=== PATIENT | male | born 1960 | race Caucasian/White ===

== ENCOUNTER → 2017-02-17 | Outpatient (REF) | payer OTHER ==
[2017-02-17 11:59] LABS: ALBUMIN/GLOBULIN RATIO 1.14 (1.00-1.93); ALKALINE PHOSPHATASE 59 U/L (45-117); ALT/SGPT 39 U/L (12-78); ANION GAP 9 MEQ/L (8-16); AST/SGOT 30 U/L (15-37); BILIRUBIN,TOTAL 0.6 MG/DL (0.2-1.0); BLOOD UREA NITROGEN 24 MG/DL (7-18); CALCIUM LEVEL 9.2 MG/DL (8.5-10.1); CARBON DIOXIDE LEVEL 30 MEQ/L (21-32); CHLORIDE LEVEL 101 MEQ/L (98-107); CHOLESTEROL LEVEL 201 MG/DL (<200); CREATININE FOR GFR 1.14 MG/DL (0.70-1.30); GLOMERULAR FILTRATION RATE > 60.0 (>56); GLUCOSE, FASTING 105 MG/DL (70-105); SODIUM LEVEL 140 MEQ/L (136-145); TOTAL PROTEIN 7.5 GM/DL (6.4-8.2); TRIGLYCERIDES LEVEL 157 MG/DL (<150); URIC ACID 7.6 MG/DL (3.5-7.2)
== END ==
LOC: M SFHCCLAY 07:18
PROVIDERS: ATTEND Nurse Practitioner
DX: I10 Essential (primary) hypertension (principal); E78.2 Mixed hyperlipidemia; Z12.5 Encounter for screening for malignant neoplasm of prostate; Z87.39 Personal history of other diseases of the musculoskeletal system and connective tissue

== ENCOUNTER → 2017-08-16 | Outpatient (CLI) | payer OTHER ==
--- NOTE | 2017-08-16 09:13 | REP ---
LEFT KNEE SERIES: Five views of the left knee performed. T here is no acute fracture or dislocation. There is slight medial joint space narrowing and lateral patellofemoral compartment narrowing. There is no joint effusion. IMPRESSION: Minimal degenerative changes.
== END ==
LOC: M CLY 08:00
PROVIDERS: ATTEND Nurse Practitioner
DX: M25.562 Pain in left knee (principal)

== ENCOUNTER → 2018-05-15 | Outpatient (REF) | payer OTHER ==
[2018-05-15 12:56] LABS: CHOLESTEROL LEVEL 165 MG/DL (<200); HDL CHOLESTEROL 50 MG/DL (>40); NON-HDL-C 115 MG/DL; TRIGLYCERIDES LEVEL 140 MG/DL (<150)
== END ==
LOC: M SFHCCLAY 06:57
DX: E78.2 Mixed hyperlipidemia (principal)

== ENCOUNTER → 2019-03-26 | Outpatient (REF) | payer OTHER ==
[2019-03-26 11:39] LABS: BASO % 0.2 % (0.0-1.0); EOS # 0.2 10^3/uL (0.0-0.50); EOS % 2.2 % (0.0-3.0); HEMATOCRIT 41.4 % (42.0-52.0); HEMOGLOBIN 14.2 g/dl (13.5-17.5); LYMPH # 0.7 10^3/uL (1.5-4.5); MEAN CORPUSCULAR HEMOGLOBIN 31.6 pg (27.0-33.0); MEAN CORPUSCULAR HGB CONC 34.3 g/dl (32.0-36.5); NEUTROPHILS # 7.6 10^3/uL (1.8-7.7); NEUTROPHILS % 80.4 % (36.0-66.0); PLATELET COUNT, AUTOMATED 196 10^3/uL (150-450); WHITE BLOOD COUNT 9.5 10^3/uL (4.0-10.0)
[2019-03-26 11:52] LABS: ALBUMIN 3.7 GM/DL (3.2-5.2); ALT/SGPT 38 U/L (12-78); BILIRUBIN,TOTAL 0.5 MG/DL (0.2-1.0); BLOOD UREA NITROGEN 25 MG/DL (7-18); CALCIUM LEVEL 8.8 MG/DL (8.8-10.2); CARBON DIOXIDE LEVEL 32 MEQ/L (21-32); CHLORIDE LEVEL 102 MEQ/L (98-107); CHOLESTEROL LEVEL 160 MG/DL (<200); CHOLESTEROL RISK RATIO 3.404 (<5); FREE T4 0.99 NG/DL (0.76-1.46); GLOMERULAR FILTRATION RATE > 60.0 (>49); GLUCOSE, FASTING 98 MG/DL (70-100); HDL CHOLESTEROL 47 MG/DL (>40); LDL CHOLESTEROL 91 MG/DL (<100); NON-HDL-C 113 MG/DL; SODIUM LEVEL 138 MEQ/L (136-145); TOTAL PROTEIN 7.3 GM/DL (6.4-8.2); TRIGLYCERIDES LEVEL 109 MG/DL (<150); URIC ACID 5.7 MG/DL (3.5-7.2)
== END ==
LOC: M SFHCCLAY 06:56
PROVIDERS: ATTEND Nurse Practitioner Family
DX: I10 Essential (primary) hypertension (principal); E78.2 Mixed hyperlipidemia; Z87.39 Personal history of other diseases of the musculoskeletal system and connective tissue

== ENCOUNTER → 2019-04-09 | Outpatient (CLI) | payer OTHER ==
--- NOTE | 2019-04-10 01:51 | REP ---
Clinical: Right-sided rhonchi Comparison: None . Technique: PA and lateral. Findings: The mediastinum and cardiac silhouette are normal. Dual lead pacemaker in satisfactory position. The lung chandler demonstrate chronic-appearing interstitial changes without acute consolidation, effusion, or pneumothorax. The skeletal structures are intact and normal. Impression: 1. No acute cardiopulmonary process.
== END ==
LOC: M CLY 14:33
PROVIDERS: ATTEND Nurse Practitioner Family
DX: R09.89 Other specified symptoms and signs involving the circulatory and respiratory systems (principal)

== ENCOUNTER 2019-09-28 07:44 | Day surgery (SDC) | payer OTHER ==
[~2019-09-28] VITALS: Ht 167.6 cm; Wt 85.8 kg
[~2019-09-28 07:44] MED LIST: ALLO100T PO; AMLO10TA5 PO; ASPI81TA85 PO; BUPIVACAINE/EPIN 0.25% 30 ML VIAL As Ordered ONE; CHLO125TA PO; CLAR10TA7 PO; FLUTISP; LIDOCAINE 1% MDV 20ML VIAL SQ PRN; LR 1,000 ML IV ONE; MULTTAB86 PO; RANO500T PO; SIMV10TA2 PO; [UNRECOGNIZED DRUG - CODE] PO; ceFAZolin SOD 1 GM in D5W MINI-BAG PLUS 50 ML IV ONE
[2019-09-28] MEDS ORDERED: PROPOFOL 200 MG/20 ML VIAL As Ordered ONE (09:11)
[2019-09-28] MEDS ORDERED: LIDOCAINE 2% INJ 100 MG/5 ML SDV (FOR ANES.) As Ordered ONE (09:11)
[2019-09-28] MEDS ORDERED: ROCURONIUM BROMIDE 50 MG/5 ML VIAL As Ordered ONE ×2 (09:11→10:21)
[2019-09-28] MEDS ORDERED: dexameTHASONE 4 MG/ML 1ML VIAL (J1100) As Ordered ONE (09:12)
[2019-09-28] MEDS ORDERED: ONDANSETRON 4MG/2ML VIAL (J2405) As Ordered ONE (09:12)
[2019-09-28] MEDS ORDERED: fentaNYL 100 MCG/2 ML INJECTION (J3010) As Ordered ONE ×2 (09:12→10:10)
[2019-09-28] MEDS ORDERED: MIDAZOLAM INJ 2 MG/2 ML VIAL (J2250) As Ordered ONE (09:12)
[2019-09-28] MEDS ORDERED: KETOROLAC 60 MG/2 ML VIAL (J1885) As Ordered ONE (10:30)
[2019-09-28] MEDS ORDERED: SUGAMMADEX SODIUM 500 MG/5 ML VIAL (BRIDION) As Ordered ONE (10:30)
[2019-09-28] MEDS ORDERED: ACETAMINOPHEN 1000MG 100ML IV BTL (OFIRMEV) (J0131 PER 10MG) As Ordered ONE (10:58)
[2019-09-28] MEDS ORDERED: oxyCODONE 5MG TAB PO PRN (11:45)
[2019-09-28] MEDS ORDERED: fentaNYL 100 MCG/2 ML INJECTION (J3010) IV PRN (11:45)
[2019-09-28] MEDS ORDERED: NORCO, ANEXSIA 5/325MG TABLET (HYDROcodone/ACETAMINOPHEN) PO PRN (11:45)
[2019-09-28] MEDS ORDERED: LR 1,000 ML IV SCH ×2 (11:45)
[2019-09-28] MEDS ORDERED: ONDANSETRON 4MG/2ML VIAL (J2405) IV PRN ×2 (11:45)
--- NOTE | 2019-09-28 12:01 | RO ---
DATE OF PROCEDURE: 09/28/2019 PREOPERATIVE DIAGNOSIS: Right inguinal hernia. POSTOPERATIVE DIAGNOSIS: Right inguinal hernia (indirect). PROCEDURE: Robotic-assisted right inguinal hernia repair with ProGrip mesh. SURGEON: Dr. Hector Luke GAMING COMMISSIONER: Samira Hamilton (provided instrument exchange, trocar placement, trocar removal, abdominal wall closure, and mesh placement). ANESTHESIA: General endotracheal anesthesia. ESTIMATED BLOOD LOSS: Minimal. DISPOSITION: The patient was taken to the recovery room awake, alert and hemodynamically stable. BRIEF OPERATIVE SUMMARY: The patient was taken to the operating room and was given general anesthesia. After adequate anesthesia and preoperative antibiotics were given, the patient was prepped and draped in the usual sterile fashion. Next, a supraumbilical incision was made with skin knife. Blunt dissection was carried down to fascia and Veress needle placed into the abdominal cavity and insufflated to 15 mm of pressure. A dilating 8 mm trocar was placed under direct visualization and under direct visualization two lateral 8 mm trocars were placed. Next, the right inguinal area was taken down after the robot was docked in the following manner. The patient was placed in Trendelenburg. Peritoneum was taken down with monopolar cut scissors and the blunt and sharp dissection was used to mobilize a flap. Eventually, dissection continued all the way to the internal ring where the hernia sac was seen and dissected off surrounding tissue and off the vas and vessels. The Yovany's ligament as well as lateral border of pubis was well visualized and after a good preperitoneal space dissection was performed. The ProGrip mesh was placed in the preperitoneal space. The peritoneum was closed over this with #3-0 V-Loc suture. All trocars were removed under direct visualization. #4-0 Vicryl was used to close all skin incisions. Steri-Strips and a dry sterile dressing was applied. The patient was awakened, extubated and brought to the recovery room awake, alert and hemodynamically stable. Sponge and needle counts were correct times two.
[2019-09-28 13:35] VITALS: BP 132/69
== END 2019-09-28 13:40 | disposition home or self-care (01) ==
LOC: M SDC 07:44
PROVIDERS: ATTEND Surgery
DX: K40.90 Unilateral inguinal hernia, without obstruction or gangrene, not specified as recurrent (principal); I10 Essential (primary) hypertension; Z95.0 Presence of cardiac pacemaker; E78.5 Hyperlipidemia, unspecified; I44.1 Atrioventricular block, second degree; Z79.899 Other long term (current) drug therapy; Z79.82 Long term (current) use of aspirin; F17.220 Nicotine dependence, chewing tobacco, uncomplicated
CPT/HCPCS: 49650; C1781; J0131; J0690; J1100; J1885; J2250; J2405; J3010

== ENCOUNTER → 2020-12-28 | Outpatient (CLI) | payer OTHER ==
[~2020-12-28] MED LIST changes: -AMLO10TA5 PO; +AMLO1TAB25 PO; -ASPI81TA85 PO; +ASPI81TA86 PO; +BAYE81TA10 PO; -BUPIVACAINE/EPIN 0.25% 30 ML VIAL As Ordered ONE; +ELIQ5TAB PO; -LIDOCAINE 1% MDV 20ML VIAL SQ PRN; -LR 1,000 ML IV ONE; -RANO500T PO; +RANO500T2 PO; -SIMV10TA2 PO; +SIMV10TA21 PO; -ceFAZolin SOD 1 GM in D5W MINI-BAG PLUS 50 ML IV ONE
== END ==
LOC: M LABSMTC 08:47
PROVIDERS: ATTEND Anesthesiology
DX: Z01.812 Encounter for preprocedural laboratory examination (principal); Z20.822 Contact with and (suspected) exposure to COVID-19

== ENCOUNTER 2021-01-02 10:22 | Day surgery (SDC) | payer OTHER ==
[~2021-01-02] VITALS: Ht 167.6 cm; Wt 87.5 kg
[~2021-01-02 10:22] MED LIST changes: +NS 1,000 ML IV ONE
[2021-01-02] MEDS ORDERED: propofoL 200 MG/20 ML VIAL As Ordered ONE (12:24)
[2021-01-02] MEDS ORDERED: LIDOCAINE 2% 100MG/5ML SDV (FOR ANES.) As Ordered ONE (12:24)
--- NOTE | 2021-01-02 13:15 | ROOR ---
Patient Name: Jay Luna Procedure Date: 01/02/2021 12:47 PM Date of : 1960 Age: 60 Room: [facility] Gender: Male Note Status: Finalized Procedure: Colonoscopy Indications: High risk colon cancer surveillance: Personal history of colonic polyps, Last colonoscopy: July 2016 Providers: Renan JACK MD Referring MD: Citlaly Galan NP Requesting Provider: Medicines: Monitored Anesthesia Care Complications: No immediate complications. Procedure: Pre-Anesthesia Assessment: - The heart rate, respiratory rate, oxygen saturations, blood pressure, adequacy of pulmonary ventilation, and response to care were monitored throughout the procedure. The Colonoscope was introduced through the anus and advanced to the terminal ileum, with identification of the appendiceal orifice and IC valve. The colonoscopy was performed without difficulty. The patient tolerated the procedure well. The quality of the bowel preparation was adequate and fair. Findings: The perianal and digital rectal examinations were normal. Three sessile polyps were found in the rectum, sigmoid colon and ascending colon. The polyps were diminutive in size. These polyps were removed with a cold snare. Resection and retrieval were complete. Internal hemorrhoids were found during retroflexion. The hemorrhoids were small. The exam was otherwise without abnormality on direct and retroflexion views. Impression: - Preparation of the colon was fair. - Three diminutive polyps in the rectum, in the sigmoid colon and in the ascending colon, removed with a cold snare. Resected and retrieved. - Internal hemorrhoids. - The examination was otherwise normal on direct and retroflexion views. Recommendation: - Repeat colonoscopy in 3 years for surveillance. - Repeat colonoscopy in 3 years because the bowel preparation was suboptimal. - Resume Eliquis (apixaban) at prior dose tomorrow. Procedure Code(s): --- Professional --- 53393, Colonoscopy, flexible; with removal of tumor(s), polyp(s), or other lesion(s) by snare technique Diagnosis Code(s): --- Professional --- K63.5, Polyp of colon K62.1, Rectal polyp K64.8, Other hemorrhoids Z86.010, Personal history of colonic polyps CPT copyright 2019 [employer]. All rights reserved. The codes documented in this report are preliminary and upon lard maker review may be revised to meet current compliance requirements. Renan Jack MD Renan JACK MD 01/02/2021 1:14:49 PM Electronically signed by Renan JACK MD Number of Addenda: 0 Note Initiated On: 01/02/2021 12:47 PM Estimated Blood Loss: Estimated blood loss: none.
[2021-01-02 13:41] VITALS: BP 143/80
== END 2021-01-02 13:43 | disposition home or self-care (01) ==
LOC: M OPP 10:22
PROVIDERS: ATTEND Internal Medicine Gastroenterology
DX: Z12.11 Encounter for screening for malignant neoplasm of colon (principal); Z86.010 Personal history of colon polyps; K63.5 Polyp of colon; K64.8 Other hemorrhoids; I10 Essential (primary) hypertension; E78.5 Hyperlipidemia, unspecified; F17.220 Nicotine dependence, chewing tobacco, uncomplicated; M10.9 Gout, unspecified; Z95.0 Presence of cardiac pacemaker; Z79.01 Long term (current) use of anticoagulants; Z79.82 Long term (current) use of aspirin; Z79.899 Other long term (current) drug therapy; Z85.828 Personal history of other malignant neoplasm of skin

== ENCOUNTER → 2021-07-14 | Outpatient (REF) | payer OTHER ==
[~2021-07-14] MED LIST changes: -NS 1,000 ML IV ONE
[2021-07-14 11:25] LABS: BASO % 0.5 % (0.0-1.0); EOS # 0.1 10^3/uL (0.0-0.5); EOS % 1.9 % (0.0-3.0); HEMATOCRIT 41.2 % (42.0-52.0); HEMOGLOBIN 14.4 g/dl (13.5-17.5); LYMPH # 0.6 10^3/uL (1.5-5.0); MEAN CORPUSCULAR HEMOGLOBIN 32.7 pg (27.0-33.0); MEAN CORPUSCULAR VOLUME 93.6 fl (80.0-96.0); MONO # 0.6 10^3/uL (0.0-0.8); MONO % 13.5 % (2.0-8.0); NEUTROPHILS % 69.9 % (36.0-66.0); PLATELET COUNT, AUTOMATED 193 10^3/uL (150-450); WHITE BLOOD COUNT 4.3 10^3/uL (4.0-10.0)
[2021-07-14 11:42] LABS: HEMOGLOBIN A1c 5.4 %
[2021-07-14 12:07] LABS: CREATININE, URINE 54.2 MG/DL; MALB URINE SIEMENS < 5.0 MG/L; MAU/CREAT RATIO 9.2 MCG/MG (0.0-30.0)
[2021-07-14 12:23] LABS: ALT/SGPT 40 U/L (12-78); BILIRUBIN,TOTAL 0.5 MG/DL (0.2-1.0); BLOOD UREA NITROGEN 21 MG/DL (7-18); CALCIUM LEVEL 9.6 MG/DL (8.8-10.2); CARBON DIOXIDE LEVEL 30 MEQ/L (21-32); CHLORIDE LEVEL 102 MEQ/L (98-107); CHOLESTEROL LEVEL 188 MG/DL (<200); CHOLESTEROL RISK RATIO 2.805 (<5); CREATININE FOR GFR 1.06 MG/DL (0.70-1.30); FREE T4 0.97 NG/DL (0.76-1.46); GLOMERULAR FILTRATION RATE > 60.0 (>49); GLUCOSE, FASTING 104 MG/DL (70-100); HDL CHOLESTEROL 67 MG/DL (>40); LDL CHOLESTEROL 99 MG/DL (<100); NON-HDL-C 121 MG/DL; POTASSIUM SERUM 3.9 MEQ/L (3.5-5.1); SODIUM LEVEL 137 MEQ/L (136-145); TOTAL PROTEIN 7.3 GM/DL (6.4-8.2); TRIGLYCERIDES LEVEL 112 MG/DL (<150); URIC ACID 5.4 MG/DL (3.5-7.2)
== END ==
LOC: M SFHCCLAY 07:28
PROVIDERS: ATTEND Nurse Practitioner Family
DX: I10 Essential (primary) hypertension (principal); E78.2 Mixed hyperlipidemia; R73.01 Impaired fasting glucose; J30.9 Allergic rhinitis, unspecified; Z95.0 Presence of cardiac pacemaker; M1A.9XX0 Chronic gout, unspecified, without tophus (tophi)

== ENCOUNTER → 2022-09-24 | Outpatient (REF) | payer OTHER | LOC: M SFHCDERM 14:34 | PROVIDERS: ATTEND Dermatology | DX: D48.9 Neoplasm of uncertain behavior, unspecified (principal) ==

== ENCOUNTER → 2022-11-02 | Outpatient (REF) | payer OTHER ==
[2022-11-02 11:59] LABS: BASO % 0.7 % (0.0-1.0); EOS # 0.1 10^3/uL (0.0-0.5); HEMATOCRIT 43.2 % (42.0-52.0); HEMOGLOBIN 14.6 g/dl (13.5-17.5); LYMPH # 0.7 10^3/uL (1.5-5.0); LYMPH % 16.1 % (24.0-44.0); MEAN CORPUSCULAR HEMOGLOBIN 32.3 pg (27.0-33.0); MEAN CORPUSCULAR HGB CONC 33.8 g/dl (32.0-36.5); MEAN CORPUSCULAR VOLUME 95.6 fl (80.0-96.0); MONO # 0.6 10^3/uL (0.0-0.8); MONO % 13.5 % (2.0-8.0); NEUTROPHILS # 3.1 10^3/uL (1.5-8.5); NEUTROPHILS % 66.5 % (36.0-66.0); PLATELET COUNT, AUTOMATED 197 10^3/uL (150-450); RED BLOOD COUNT 4.52 10^6/uL (4.30-6.10); WHITE BLOOD COUNT 4.6 10^3/uL (4.0-10.0)
[2022-11-02 12:18] LABS: URIC ACID 5.9 MG/DL (3.7-9.2)
[2022-11-02 12:22] LABS: ALBUMIN 3.7 G/DL (3.2-5.2); ALKALINE PHOSPHATASE 73 U/L (46-116); ALT/SGPT 31 U/L (7.0-40); AST/SGOT 22 U/L (<34); BILIRUBIN,TOTAL 0.4 MG/DL (0.3-1.2); BLOOD UREA NITROGEN 24 MG/DL (9-23); CALCIUM LEVEL 9.3 MG/DL (8.3-10.6); CARBON DIOXIDE LEVEL 31 MMOL/L (20-31); CHLORIDE LEVEL 98 MMOL/L (98-107); CHOLESTEROL LEVEL 160 MG/DL (<200); CHOLESTEROL RISK RATIO 2.56 (<5); CREATININE FOR GFR 1.13 MG/DL (0.70-1.30); FREE T4 1.18 NG/DL (0.89-1.76); GLOMERULAR FILTRATION RATE > 60.0 (>49); GLUCOSE, FASTING 98 MG/DL (74-106); HDL CHOLESTEROL 62.3 MG/DL (>40); LDL CHOLESTEROL 59.9 MG/DL (<100); NON-HDL-C 98 MG/DL; POTASSIUM SERUM 4.4 MMOL/L (3.5-5.1); SODIUM LEVEL 137 MMOL/L (136-145); THYROID STIMULATING HORMONE 2.148 uIU/ML (0.55-4.78); TOTAL 25(OH) VITAMIN D 22.3 NG/ML (20.0-100.0); TOTAL PROTEIN 7.2 G/DL (5.7-8.2); TRIGLYCERIDES LEVEL 189 MG/DL (<150)
[2022-11-02 12:32] LABS: HEMOGLOBIN A1c 5.1 % (4.0-6.0)
[2022-11-02 12:48] LABS: CREATININE, URINE 90.6 MG/DL; MALB URINE SIEMENS < 5.0 MG/DL; MAU/CREAT RATIO 5.5 MCG/MG (0.0-30.0)
== END ==
LOC: M SFHCCLAY 07:30
PROVIDERS: ATTEND Nurse Practitioner Family
DX: I10 Essential (primary) hypertension (principal); E78.2 Mixed hyperlipidemia; R73.01 Impaired fasting glucose; J30.9 Allergic rhinitis, unspecified; Z95.0 Presence of cardiac pacemaker; Z12.5 Encounter for screening for malignant neoplasm of prostate; M1A.9XX0 Chronic gout, unspecified, without tophus (tophi)

== ENCOUNTER → 2022-12-10 | Outpatient (REF) | payer OTHER | LOC: M SFHCDERM 17:25 → M LAB REF 17:25 | PROVIDERS: ATTEND Dermatology | DX: L73.9 Follicular disorder, unspecified (principal); L90.5 Scar conditions and fibrosis of skin; L92.9 Granulomatous disorder of the skin and subcutaneous tissue, unspecified ==

== ENCOUNTER → 2023-12-14 | Outpatient (REF) | payer MEDICARE, OTHER ==
[2023-12-14 16:27] LABS: BASO % 0.5 % (0.0-1.0); EOS # 0.1 10^3/uL (0.0-0.5); EOS % 1.8 % (0.0-3.0); HEMATOCRIT 42.4 % (42.0-52.0); HEMOGLOBIN 14.8 g/dl (13.5-17.5); LYMPH # 0.8 10^3/uL (1.5-5.0); LYMPH % 14.2 % (24.0-44.0); MEAN CORPUSCULAR HEMOGLOBIN 33.4 pg (27.0-33.0); MEAN CORPUSCULAR HGB CONC 34.9 g/dl (32.0-36.5); MEAN CORPUSCULAR VOLUME 95.7 fl (80.0-96.0); MONO # 0.8 10^3/uL (0.0-0.8); MONO % 14.4 % (2.0-8.0); NEUTROPHILS # 3.8 10^3/uL (1.5-8.5); NEUTROPHILS % 68.7 % (36.0-66.0); PLATELET COUNT, AUTOMATED 230 10^3/uL (150-450); RED BLOOD COUNT 4.43 10^6/uL (4.30-6.10); WHITE BLOOD COUNT 5.6 10^3/uL (4.0-10.0)
[2023-12-14 16:42] LABS: URIC ACID 6.7 MG/DL (3.7-9.2)
[2023-12-14 16:43] LABS: PSA SCREENING 0.35 NG/ML (< 4.00)
[2023-12-14 16:46] LABS: ALBUMIN 4.1 G/DL (3.2-5.2); ALKALINE PHOSPHATASE 59 U/L (46-116); ALT/SGPT 26 U/L (7.0-40); AST/SGOT 21 U/L (<34); BILIRUBIN,TOTAL 0.6 MG/DL (0.3-1.2); BLOOD UREA NITROGEN 28 MG/DL (9-23); CALCIUM LEVEL 9.7 MG/DL (8.3-10.6); CARBON DIOXIDE LEVEL 30 MMOL/L (20-31); CHLORIDE LEVEL 102 MMOL/L (98-107); CHOLESTEROL LEVEL 188 MG/DL (<200); CHOLESTEROL RISK RATIO 2.44 (<5); CREATININE FOR GFR 0.94 MG/DL (0.70-1.30); GLOMERULAR FILTRATION RATE > 60.0 (>49); GLUCOSE, FASTING 101 MG/DL (74-106); LDL CHOLESTEROL 84.6 MG/DL (<100); POTASSIUM SERUM 4.5 MMOL/L (3.5-5.1); SODIUM LEVEL 134 MMOL/L (136-145); TOTAL PROTEIN 7.4 G/DL (5.7-8.2); TRIGLYCERIDES LEVEL 132 MG/DL (<150)
[2023-12-14 16:47] LABS: FREE T4 1.22 NG/DL (0.89-1.76); THYROID STIMULATING HORMONE 1.911 uIU/ML (0.55-4.78)
[2023-12-14 17:09] LABS: HEMOGLOBIN A1c 5.2 % (4.0-6.0)
== END ==
LOC: M SFHCCLAY 10:00
PROVIDERS: ATTEND Nurse Practitioner Family
DX: Z00.00 Encounter for general adult medical examination without abnormal findings (principal); I10 Essential (primary) hypertension; E78.2 Mixed hyperlipidemia; R73.01 Impaired fasting glucose; J30.9 Allergic rhinitis, unspecified; Z95.0 Presence of cardiac pacemaker; M1A.9XX0 Chronic gout, unspecified, without tophus (tophi); Z12.5 Encounter for screening for malignant neoplasm of prostate
CPT/HCPCS: 80053; 80061; 83036; 84439; 84443; 84550; 85025; G0103

== ENCOUNTER → 2024-02-29 | Outpatient (REF) | payer MEDICARE, OTHER ==
[2024-02-29 13:03] LABS: CHOLESTEROL RISK RATIO 2.2 (<5); HDL CHOLESTEROL 73.6 MG/DL (>40); LDL CHOLESTEROL 74.4 MG/DL (<100); NON-HDL-C 88.4 MG/DL
== END ==
LOC: M LABDRAWC 11:25
PROVIDERS: ATTEND Internal Medicine Interventional Cardiology
DX: E78.2 Mixed hyperlipidemia (principal)

== ENCOUNTER 2024-04-27 10:24 | Day surgery (SDC) | payer MEDICARE, OTHER ==
[~2024-04-27] VITALS: Ht 167.6 cm; Wt 90.2 kg
[~2024-04-27 10:24] MED LIST changes: +LIDOCAINE 2% 100MG/5ML SDV (FOR ANES.) As Ordered ONE; +LISI5TAB11 PO; +propofoL 200 MG/20 ML VIAL As Ordered ONE
[2024-04-27] MEDS: NS 1,000 ML IV ONE (11:08)
[2024-04-27 12:14] VITALS: TEMP 98
[2024-04-27 12:39] VITALS: BP 135/72; O2SAT 99
== END 2024-04-27 12:46 | disposition home or self-care (01) ==
LOC: M OPP 10:24
PROVIDERS: ATTEND Internal Medicine Gastroenterology
DX: Z12.11 Encounter for screening for malignant neoplasm of colon (principal); Z86.010 Personal history of colon polyps; K63.5 Polyp of colon; K64.8 Other hemorrhoids; Z95.0 Presence of cardiac pacemaker; Z79.02 Long term (current) use of antithrombotics/antiplatelets; Z79.82 Long term (current) use of aspirin; Z79.899 Other long term (current) drug therapy; Z88.4 Allergy status to anesthetic agent; Z91.018 Allergy to other foods

== ENCOUNTER → 2024-06-14 | Outpatient (CLI) | payer MEDICARE, OTHER ==
[~2024-06-14] MED LIST changes: -LIDOCAINE 2% 100MG/5ML SDV (FOR ANES.) As Ordered ONE; -propofoL 200 MG/20 ML VIAL As Ordered ONE
== END ==
LOC: M CLY 09:06
PROVIDERS: ATTEND Family Medicine
DX: M47.816 Spondylosis without myelopathy or radiculopathy, lumbar region (principal); M54.50 Low back pain, unspecified; G89.29 Other chronic pain

== ENCOUNTER → 2024-12-17 | Outpatient (REF) | payer MEDICARE, OTHER ==
[2024-12-17 17:57] LABS: BASO % 0.4 % (0.0-1.0); EOS # 0.1 10^3/uL (0.0-0.5); EOS % 1.4 % (0.0-3.0); HEMATOCRIT 41.1 % (42.0-52.0); HEMOGLOBIN 14.1 g/dl (13.5-17.5); LYMPH # 0.5 10^3/uL (1.5-5.0); LYMPH % 10.1 % (24.0-44.0); MEAN CORPUSCULAR HEMOGLOBIN 33.5 pg (27.0-33.0); MEAN CORPUSCULAR HGB CONC 34.3 g/dl (32.0-36.5); MEAN CORPUSCULAR VOLUME 97.6 fl (80.0-96.0); MONO # 0.5 10^3/uL (0.0-0.8); MONO % 10.5 % (2.0-8.0); NEUTROPHILS # 3.8 10^3/uL (1.5-8.5); NEUTROPHILS % 77.4 % (36.0-66.0); PLATELET COUNT, AUTOMATED 196 10^3/uL (150-450); RED BLOOD COUNT 4.21 10^6/uL (4.30-6.10); WHITE BLOOD COUNT 4.9 10^3/uL (4.0-10.0)
[2024-12-17 18:16] LABS: CREATININE, URINE 50.6 MG/DL; MALB URINE SIEMENS < 3.0 MG/L
[2024-12-17 18:19] LABS: PSA SCREENING 0.37 NG/ML (< 4.00)
[2024-12-17 18:23] LABS: FREE T4 1.33 NG/DL (0.89-1.76)
[2024-12-17 18:25] LABS: ALKALINE PHOSPHATASE 57 U/L (40-129); ALT/SGPT 29 U/L (7.0-40); AST/SGOT 25 U/L (<34); BILIRUBIN,TOTAL 0.6 MG/DL (0.3-1.2); BLOOD UREA NITROGEN 24 MG/DL (9-23); CALCIUM LEVEL 9.6 MG/DL (8.3-10.6); CARBON DIOXIDE LEVEL 29 MMOL/L (20-31); CHLORIDE LEVEL 101 MMOL/L (98-107); CHOLESTEROL LEVEL 176 MG/DL (<200); CHOLESTEROL RISK RATIO 2.27 (<5); GLOMERULAR FILTRATION RATE > 60.0 (>49); GLUCOSE, FASTING 96 MG/DL (74-106); HDL CHOLESTEROL 77.5 MG/DL (>40); LDL CHOLESTEROL 70.7 MG/DL (<100); NON-HDL-C 98.5 MG/DL; POTASSIUM SERUM 4.6 MMOL/L (3.5-5.1); SODIUM LEVEL 138 MMOL/L (136-145); TOTAL PROTEIN 7.4 G/DL (5.7-8.2); TRIGLYCERIDES LEVEL 139 MG/DL (<150)
[2024-12-17 18:37] LABS: HEMOGLOBIN A1c 5.4 % (4.0-6.0)
[2024-12-18 10:35] LABS: IRON (FE) 138 UG/DL (65-175); TOTAL IRON BINDING CAPACITY 321 UG/DL (250-425)
[2024-12-18 10:37] LABS: FOLATE 18.65 NG/ML (>5.4)
[2024-12-18 10:38] LABS: VITAMIN B12 LEVEL 567 PG/ML (211-911)
== END ==
LOC: M SFHCCLAY 10:23
PROVIDERS: ATTEND Nurse Practitioner Family
DX: Z00.00 Encounter for general adult medical examination without abnormal findings (principal); I10 Essential (primary) hypertension; E78.2 Mixed hyperlipidemia; R73.01 Impaired fasting glucose; J30.9 Allergic rhinitis, unspecified; Z95.0 Presence of cardiac pacemaker; Z12.5 Encounter for screening for malignant neoplasm of prostate; D64.9 Anemia, unspecified
CPT/HCPCS: 80053; 80061; 82043; 82607; 82728; 82746; 83036; 83550; 84439; 84443; 85025; G0103